=== PATIENT | male | born 1965 | race Caucasian/White ===

== ENCOUNTER → 2020-09-14 | Outpatient (CLI) | payer BC, OTHER ==
[2020-09-14 05:58] LABS: HEMOGLOBIN 16.2 gm/dl (14.0-17.5); RED BLOOD COUNT 4.96 M/UL (4.20-5.50); WHITE BLOOD COUNT 8.5 K/UL (4.5-11.0)
[2020-09-14 06:23] LABS: BUN/CREATININE RATIO 14 (0-10)
== END ==
LOC: LAB 05:40
PROVIDERS: Internal Medicine
DX: E78.5 Hyperlipidemia, unspecified (principal)
CPT/HCPCS: 36415; 80048; 80061; 80076; 84443; 85025

== ENCOUNTER → 2021-11-22 | Outpatient (CLI) | payer BC ==
[2021-11-22 07:33] LABS: HEMOGLOBIN 15.9 gm/dl (14.0-17.5); RED BLOOD COUNT 4.87 M/UL (4.20-5.50); WHITE BLOOD COUNT 8.5 K/UL (4.5-11.0)
[2021-11-22 08:09] LABS: BUN/CREATININE RATIO 15 (0-10)
[2021-11-23 08:10] LABS: SARS COV-2 SEMI-QUANT IGG <13.0 AU/mL (Neg <13.0); SARS COV-2 SPIKE AB INTERP Negative (.)
== END ==
LOC: LAB 06:47
PROVIDERS: Internal Medicine
DX: I10 Essential (primary) hypertension (principal); Z20.822 Contact with and (suspected) exposure to COVID-19
CPT/HCPCS: 80048; 80061; 80076; 84153; 84443; 85025; 86769

== ENCOUNTER → 2021-12-09 | Outpatient (CLI) | payer BC | LOC: KOH-I 15:12 | DX: M25.572 Pain in left ankle and joints of left foot (principal) | CPT/HCPCS: 73610; 73630 ==